=== PATIENT | male | born 1990 | race Caucasian/White ===

== ENCOUNTER 2018-10-11 19:33 | Emergency (ER) | payer BC ==
--- OUTSIDE RECORDS SUMMARY | 2018-10-11 19:37 | XMS REPORT | Continuity of Care Document ---
:1990 External Reference #:[id number] Author Name Buck Ivey M.D. Address [address] [place] [address] Care Team Providers Name Role Phone Javid Pillai M.D. 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 Family History Date Family Member(s) Observation Comments Father No Current Problems Mother No Current Problems Social History Type Date Description Comments Sex Unknown Marital Status Single Occupation It support and Manager Physical Work Status Full-Time Employment ETOH Use 3 drinks 3 times weekly Tobacco Use Start: Unknown Patient has never smoked Recreational Drug Use Denies Drug Use Smoking Status Reviewed: 09/24/18 Patient has never smoked Allergies, Adverse Reactions, Alerts Description No Known Drug Allergies Medications Active Medications SIG Qnty Indications Ordering Provider Date Humira Unknown 20mg/0.2ML PSKT History Medications No Active Medications Unknown 09/24/2018 - 09/24/2018 Prednisolone Acetate 1 drops right 5ml H20.011 Buck 02/22/2016 - 1% eye Six times a Lisa Ivey 09/24/2018 Suspension day. taper as directed Prednisolone Use 1 Drop Right H20.011 Joce Delgado 11/02/2015 - 15mg/5ML Eye Lisa Hicks 11/05/2015 Syrup Prednisone 1 tab by mouth 3 45tabs H20.011 Buck 10/30/2015 - 20mg Tablets times daily Lisa Ivey 12/19/2015 Prednisolone Acetate 1 drop right eye 15ml H20.011 Buck 10/27/2015 - 1% - every hour Lisa Ivey 09/24/2018 Suspension while awake Prednisone Take four 30tabs Joce Delgado 10/24/2015 - 10mg Tablets tablets by mouth Lisa Hicks 11/05/2015 for 3 days, then two tablets by mouth for 3 days, then one tablet by mouth for 3 days, then d/c. Atropine Sulfate 1 drop right eye 5ml Maria Ramírez, 10/23/2015 - 1% every day O.D. 11/05/2015 Solution Durezol 1 drop 6 times a 5ml H20.011 Maria Ramírez, 10/23/2015 - 0.05% Emulsion day in the right O.D. 10/26/2015 eye No Active Medications Unknown 10/19/2015 - 10/19/2015 Prednisolone Acetate 1 drop right eye 1units H20.011 Maria Nevarezy, 10/18 - 1% every 2 hours O.D. 10/26/2015 Suspension Procedures Date Code Description Status 11/21/2015 76077 Est Patient Intermediate Exam Completed 10/30/2015 91867 Est Patient Intermediate Exam Completed 10/19/2015 87597 Est Patient Intermediate Exam Completed 03/25/2011 04887 New Patient Comprehensive Exam Completed Encounters Type Date Location Provider Dx Diagnosis Office Visit 02/22/2016 Buck Javed H20.011 Primary 8:00a janet JUNG M.D. iridocyclitis, right eye Office Visit 01/17/2016 Buck Javed H20.011 Primary 8:00a janet JUNG M.D. iridocyclitis, right eye Office Visit 12/19/2015 Buck Javed H20.011 Primary 3:45p janet JUNG M.D. iridocyclitis, right eye Office Visit 11/06/2015 Buck Javed H20.011 Primary 9:45a MD, pc Zablocki, M.D. iridocyclitis, right eye Office Visit 11/02/2015 Joce Javed, H20.011 Primary 11:30a janet JUNG M.D. iridocyclitis, right eye Office Visit 10/27/2015 Maria Javed, H20.011 Primary 3:30p janet JUNG O.D. iridocyclitis, right eye Office Visit 10/23/2015 Maria Javed, H20.011 Primary 8:45a janet JUNG O.D. iridocyclitis, right eye Office Visit 05/27/2013 Aristeo Javed, 364.01 Iridocyclitis 3:30p janet JUNG M.D. Primary Office Visit 05/20/2013 Aristeo Javed, 364.01 Iridocyclitis 2:30p janet JUNG M.D. Primary Office Visit 04/06/2012 Amanda Javed, 364.01 Iridocyclitis 4:15p janet JUNG O.D. Primary Office Visit 04/03/2012 Amanda Javed, 364.01 Iridocyclitis 3:45p janet JUNG O.D. Primary Office Visit 05/02/2011 Amanda Javed, 364.01 Iridocyclitis 4:00p janet JUNG O.D. Primary Office Visit 04/18/2011 Amanda Javed, 364.01 Iridocyclitis 4:00p janet JUNG O.D. Primary Office Visit 04/02/2011 Aristeo Javed, 364.01 Iridocyclitis 1:45p janet JUNG M.D. Primary Office Visit 03/28/2011 Amanda Javed, 364.01 Iridocyclitis 10:30a janet JUNG O.D. Primary Plan of Treatment 09/24/2018 - Buck Ivey M.D.H20.011 Primary iridocyclitis, right eyeComments:Smoking can increase the risk of developing or worsening any eye related disease, as well as affect your overall health. If you are a smoker, we strongly recommend that you quit.If you are not a smoker, we strongly recommend that you do not start. IF YOUR SYMPTOMS RETURN CALL THE CLINIC TO SCHEDULE AN APPOINTMENT.Follow up:6 Month Follow Up DFE You can expect to have your eyes dilated at your next visit. If Dr. Ivey orders any additional testing, it may require extra time. We recommend that you bring sunglasses, as dilation drops often make you light sensitive until they wear off. We always recommend you bring someone to drive you home if you are uncomfortable driving with your eyes dilated. If you have any questions before your next visit, feel free to call our office at .
--- NOTE | 2018-10-11 19:57 | UC ---
Lower Extremity/Ankle HPI - HPI Summary HPI Summary: Patient presents to urgent care for evaluation of an ankle injury that occurred yesterday. Patient states around 7:30 PM he was walking when he inverted his ankle. Patient did not fall. No other injuries. Patient states he had pain and lateral malleolus. Patient was at a festival sought care at their medical tent. Patient states he put an Evert wrap on it. Patient continue to walk. Overnight wound became more swollen more black and blue. Patient states he has not been able elevated. Patient took Motrin yesterday but nothing today. No knee or hip pain. No back pain. No other complaints. Patient's medications reviewed this visit. - History of Current Complaint Chief Complaint: UCLowerExtremity Stated Complaint: L ANKLE INJURY Time Seen by Provider: 10/11/18 19:35 Hx Obtained From: Patient, Family/Commutator Operator Onset/Duration: Gradual Onset Severity Currently: Mild Pain Intensity: 3 Pain Scale Used: 0-10 Numeric - Allergies/Home Medications Allergies/Adverse Reactions: Allergies Allergy/AdvReac Type Severity Reaction Status Date / Time No Known Allergies Allergy Verified 10/11/18 19:40 Home Medications: Home Medications Ibuprofen 600 mg PO 10/11/18 [History] Multivitamin [Multivitamins] 1 cap PO 10/11/18 [History] PMH/Surg Hx/FS Hx/Imm Hx Previously Healthy: Yes - Surgical History Surgical History: Yes Surgery Procedure, Year, and Place: wisdom teeth - Family History Known Family History: Positive: Non-Contributory - Social History Occupation: Employed Full-time Lives: With Family Alcohol Use: Weekly Substance Use Type: None Smoking Status (MU): Former Smoker Type: eCigarettes - Immunization History Most Recent Influenza Vaccination: never Most Recent Tetanus Shot: unknown Most Recent Pneumonia Vaccination: never Review of Systems All Other Systems Reviewed And Are Negative: Yes Skin: Positive: Bruising Musculoskeletal: Positive: Other: - left ankle Physical Exam - Summary Physical Exam Summary: Vital Signs Reviewed: Yes A+Ox3, no distress Eyes: Conjunctiva Clear ENT: Hearing grossly normal neck: supple Respiratory: Positive: No respiratory distress, No accessory muscle use Cardiovascular: skin color reflect adequate perfusion 2+ DP, PT CBT < 2 sec Musculoskeletal Exam: favoring left LE. + SLE + flex/ext knee, + TTP lateral ankle with flex/ext + TTP anterior, inferior margin of ankle. + TTP dorsum midfoot 4/5 MT no crepitus Neurological: Positive: Alert, ambulatory without difficulty Psychological: Positive: Normal Response To proivder Skin: Positive: no rash, extensive ecchymosis and edema lateral malleolus and dorsum foot with extension to dorsum foot and toes no crepitus Triage Information Reviewed: Yes Vital Signs: Initial Vital Signs Temp 99.0 F 10/11/18 19:37 Pulse 92 10/11/18 19:37 Resp 18 10/11/18 19:37 BP 140/116 10/11/18 19:37 Pulse Ox 99 10/11/18 19:37 Diagnostics - Radiology No standard instances Radiology Interpretation Completed By: Radiologist - Patient Name: KELLY STARK Medical Record#: [id number] Ordering Physician: Cathleen Cisneros MD Acct.#: [id number] : 1990 Age: 28 Sex: M Location: [facility] Exam Date: 10/11/181949 ADM Status: REG ER Order Information: ANKLE LEFT 3+ VWS Accession Number: [id number] CPT: 80781 EXAM: XR Left Ankle EXAM DATE/TIME: 10/11/2018 8 :04 PM CLINICAL HISTORY: 28 years old, male; Injury or trauma; Fall; Late effect from previous injury; Sprain or strain and swelling (edema); Ankle; Left ; Additional info: Inverted pain lat mall and mid foot TECHNIQUE: Imaging protocol: XR Left ankle. Views: 3 or more views. COMPARISON: No relevant prior studies available. FINDINGS: Bones/joints: No acute fracture. No dislocation. Soft tissues: Lateral soft tissue swelling. IMPRESSION: No acute fracture. To contact [facility] with a general question: Operations Center - [phone] For direct physician to physician contact: Physician Hotline - [phone] [facility] ([facility] Facility ID #[id number]) <Electronically signed by Alvaro Hurt MD in OV> 10/11/182100 Dictated By: Alvaro Hurt MD Dictated Date/Time: 10/11/182100 Transcribed Date/Time: Copy to: CC:Javid Pillai MD; Cathleen Cisneros MD Imaging - [facility] [address] This report is only to be considered final once signed by the Provider(s ) as displayed in the "<Electronically Signed by >" field (s). Absence of a signature indicates the report is in a draft status and still needs to be finalized. In the event this document was created by someone other than the signing Provider, the individual initiating the document will be listed in the "Entered by:" or "Dictated by:" darby. 1 of 2 Patient Name: KELLY STARK Medical Record#: [id number] Ordering Physician: Cathleen Cisneros MD Acct.#: [id number] : 1990 Age: 28 Sex: M Location: [facility] Exam Date: 10/11/181950 ADM Status: REG ER Order Information: FOOT LEFT 3+ VWS Accession Number: [id number] CPT: 98244 EXAM: XR Left Foot Complete EXAM DATE/TIME: 10/11/2018 8:04 PM CLINICAL HISTORY: 28 years old, male; Injury or trauma; Fall; Late effect from previous injury; Sprain or strain and swelling (edema); Left; Ankle and foot; Additional info: Inverted pain lat mall and mid foot TECHNIQUE: Imaging protocol: XR Left foot. Views: 3 or more views. COMPARISON: No relevant prior studies available. FINDINGS: Bones/joints: No acute fracture. No dislocation. Soft tissues: Unremarkable. IMPRESSION: No acute fracture. To contact [facility] with a general question: Operations Center - [phone] For direct physician to physician contact: Physician Hotline - [phone] [facility] ([facility] Facility ID #[id number]) <Electronically signed by Alvaro Hurt MD in OV> 10/11/182101 Dictated By: Alvaro Hurt MD Dictated Date/Time: 2101 Transcribed Date/Time: Copy to: CC:Javid Pillai MD; Cathleen Cisneros MD Imaging - [facility] Imaging - [facility] Imaging - [facility] [address] [facility] [address] [place] [address] This report is only to be considered final once signed by the Provider(s) as displayed in the "< Electronically Signed by >" field (s). Absence of a signature indicates the report is in a draft status and still needs to be finalized. In the event this document was created by someone other than the signing Provider, the individual initiating the document will be listed in the "Entered by:" or "Dictated by:" darby. 1 of 2 Lower Extremity Course/Dx - Course Course Of Treatment: Patient presents for evaluation of his left ankle following an inversion injury yesterday. Patient states he wrapped up a continue to walk on it. Patient with progressive edema and ecchymosis on the left lateral malleolus extending to the dorsum of the left foot. Patient is walking limp. No knee or hip pain. No other injuries. Patient has not taken anything for analgesia today. Patient states his foot was down as he was driving with progressive the last evening today. O Patient does have profound ecchymosis from the left malleolus extending to the toes. Patient also edema in the same area. Patient with tenderness along the lateral malleolus as well as the dorsum of the foot. We'll check imaging. Patient aware will be a preliminary Curtis tonight. We'll place in splint with Evert wrap or air splint pending was a fracture. Crutches. Ice and elevate and follow. Patient comfortable in agreement with plan. pt's BP markedly elevated - improved on recheck but high pt states gets like this in MD office recommend cjhec at home/drug store must f/u with pcp - Differential Dx/Diagnosis Provider Diagnosis: Left ankle sprain Discharge - Sign-Out/Discharge Documenting (check all that apply): Patient Departure All imaging exams completed and their final reports reviewed: Yes - Discharge Plan Condition: Stable Disposition: HOME Patient Education Materials: Ankle Sprain (ED), Crutch Instructions (ED) Referrals: Javid Pillai MD [Primary Care Provider] - Antonieta Post MD [Medical Doctor] - Additional Instructions: -wear evert wrap and splint for comfort and support -apply ice (20 min at a time) every 2-3 hours for the next 2 days -use crutches until you can walk normally without a limp -Elevate your leg - this will help with swelling and pain - Alternate ibuprofen (advil, Motrin) 600mg and tylenol every 3 hours for pain. Take with food. Do NOT take for more than 4-5 days -Contact the orthopedic provider tomorrow to schedule a follow-up appointment this week. Contact your doctor or the offender employment specialist with questions or concerns - Billing Disposition and Condition Condition: STABLE Disposition: Home
[2018-10-11 20:17] VITALS: BP 172/96
== END 2018-10-11 21:29 | disposition home or self-care (01) ==
LOC: UCEAST 19:33
DX: S93.402A Sprain of unspecified ligament of left ankle, initial encounter (principal); X50.0XXA Overexertion from strenuous movement or load, initial encounter; Y93.01 Activity, walking, marching and hiking; Y92.89 Other specified places as the place of occurrence of the external cause; Z87.891 Personal history of nicotine dependence
CPT/HCPCS: 99212; G0463

== ENCOUNTER 2019-05-25 17:10 | Emergency (ER) | payer BC ==
--- OUTSIDE RECORDS SUMMARY | 2019-05-25 17:15 | XMS REPORT | Continuity of Care Document ---
:1990 External Reference #:[id number] Author Name Joce Forte M.D. (transmitted by agent of provider Joanne Little) Address [address] [place] [address] Care Team Providers Name Role Phone Javid Pillai MD - Family Medicine Care Team Information Wharf Tender Problems Description No Information Available Social History Type Date Description Comments Sex Unknown ETOH Use Occasionally consumes alcohol Tobacco Use Start: Unknown End: Patient is a former Unknown smoker Tobacco Use Start: Unknown End: Patient is a former Pt. smoked for three Unknown smoker years. quit 3 years ago. 03/20 ppd Tobacco Use Start: Unknown End: currently smokes E-Pen Unknown Smoking Status Reviewed: 03/30/19 Patient is a former smoker Exercise Exercises regularly Type/Frequency Allergies, Adverse Reactions, Alerts Description No Known Drug Allergies Medications Active Medications SIG Qnty Indications Ordering Provider Date Lotrimin AF apply twice daily 12gm B35.4 Joce Forte, 08/30/2016 1% Cream to affected area M.D. as needed Humira Pen inject 40 mg 6units H20.9 Joce Forte, 07/12/2016 40mg/0.8ML under the skin M.D. PNKT every other week, citrate free M24.60 Medications Administered in Office Medication SIG Qnty Indications Ordering Provider Date PPD Joce Forte M.D. 06/25/2016 Injection Immunizations CPT Code Status Date Vaccine Reaction Lot # 54531 Given 04/29/2017 Pneumonia Vaccine no immediate reaction [id number] 25276 Given 02/27/2017 Influenza Virus Vaccine, no immediate reaction [id number] Quadrivalent, Split, noted Preservative Free 87670 Given 02/27/2017 Pneumococcal Conjugate no immediate reaction [id number] Vaccine 13 Valent For noted Intramuscular Use Vital Signs Date Vital Result Comment 03/30/2019 10:18am Height 69 inches 5'9" Weight 203.00 lb Heart Rate 91 /min BP Systolic Sitting 132 mmHg BP Diastolic Sitting 80 mmHg Body Temperature 96.8 F Pain Level 1 O2 % BldC Oximetry 97 % BMI (Body Mass Index) 30.0 kg/m2 10/27/2018 8:57am Height 69 inches 5'9" Weight 185.00 lb Heart Rate 76 /min BP Systolic 114 mmHg BP Diastolic 88 mmHg Respiratory Rate 16 /min Body Temperature 97.1 F Pain Level 0 BMI (Body Mass Index) 27.3 kg/m2 Results Description No Information Available Procedures Date Code Description Status 10/30/2016 670615419 Diabetic Retinal Eye Exam Completed Medical Devices Description No Information Available Encounters Type Date Location Provider Dx Diagnosis Office Visit 10/27/2018 [facility] Bernardo Lopez, S93.432D Sprain of 8:45a at [facility].D. tibiofibular ligament of left ankle, subs encntr Office Visit 10/13/[address] [facility] Bernardo Lopez, S93.432A Sprain of 8:15a at 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 unspecified 03/30/2019 Z79.899 Other snf (current) drug therapy Joce Forte M.D. 10/27/2018 S93.432D Sprain of tibiofibular ligament of left Bernardo Lopez M.D. ankle, subsequent encounter 10/13/2018 S93.432A Sprain of tibiofibular ligament of left Bernardo Lopez M.D. ankle, initial encounter Plan of Treatment Future Appointment(s):12/29/2019 11:00 am - Joce Forte M.D. 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
--- OUTSIDE RECORDS SUMMARY | 2019-05-25 17:15 | XMS REPORT | Continuity of Care Document ---
:1990 External Reference #:[id number] Author Name Buck Ivey M.D. Address [address] [place] [address] Care Team Providers Name Role Phone Javid Pillai M.D. 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 Social History Type Date Description Comments Sex Unknown ETOH Use 3 drinks 3 times weekly Tobacco Use Start: Unknown Patient has never smoked Recreational Drug Use Denies Drug Use Smoking Status Reviewed: 03/30/19 Patient has never smoked Allergies, Adverse Reactions, Alerts Description No Known Drug Allergies Medications Active Medications SIG Qnty Indications Ordering Provider Date Humira Unknown 20mg/0.2ML PSKT Immunizations Description No Information Available Vital Signs Description No Information Available Results Description No Information Available Procedures Description No Information Available Medical Devices Description No Information Available Encounters Description No Information Available Assessments Date Code Description Provider 03/30/2019 H20.011 Primary iridocyclitis, right eye Buck Ivey M.D. Plan of Treatment 03/30/2019 - Buck Ivey M.D.H20.011 Primary iridocyclitis, right eyeComments:Smoking can increase the risk of developing or worsening any eye related disease, as well as affect your overall health. If you are a smoker, we strongly recommend that you quit.If you are not a smoker, we strongly recommend that you do not start. THERE IS NO SIGN OF UVEITIS IN THE EYES. THE HUMIRA APPEARS TO BE WORKING WELL FOR YOU.IF YOU HAVE A RETURN OF SYMPTOMS THEN CALL THE OFFICEFollow up:6 Month Follow Up DFE You can [...] free to call our office at . Functional Status Description No Information Available Mental Status Description No Information Available Referrals Description No Information Available
--- OUTSIDE RECORDS SUMMARY | 2019-05-25 17:15 | XMS REPORT | Continuity of Care Document ---
:1990 External Reference #:[id number] Author Name Buck Ivey M.D. Address [address] [place] [address] Care Team Providers Name Role Phone Javid Pillai M.D. - Family Medicine Care Team Information Regulatory Affairs Director [phone] Joce Forte MD - Rheumatology Care Team Information Regulatory Affairs Director Problems Active Problems Provider Date Primary iridocyclitis [...]
[2019-05-25 17:20] VITALS: BP 133/88
--- NOTE | 2019-05-25 19:10 | UC ---
Complaint Male HPI - HPI Summary HPI Summary: 28-year-old male comes in with a chief complaint of intermittent blood in his stools. He's had several episodes after a large hard stool or has bloody there on the stool or in the water on the toilet fever. 2 weeks ago patient had a large stool and had pain with it and had blood at that time. Symptoms resolved after about 2 days. This morning when he had a bowel movement the stool was normal didn't see any blood in the toilet but did have blood on the toilet paper. He also has been having intermittent abdominal discomfort and bloating. Patient is on Humira for possible ankylosing spondylitis. - History of Current Complaint Chief Complaint: UCGI Stated Complaint: BLOOD IN STOOL Time Seen by Provider: 05/25/19 18:40 Pain Intensity: 0 - Allergies/Home Medications Allergies/Adverse Reactions: Allergies Allergy/AdvReac Type Severity Reaction Status Date / Time No Known Allergies Allergy Verified 05/25/19 17:20 Home Medications: Home Medications Ibuprofen 600 mg PO Q6HR 10/11/18 [History] Multivitamin [Multivitamins] 1 cap PO DAILY 10/11/18 [History Confirmed 05/25/19 ] Adalimumab [Humira] 10 mg SUBCUT DAILY 05/25/19 [History Confirmed 05/25/19] PMH/Surg Hx/FS Hx/Imm Hx Previously Healthy: Yes - Surgical History Surgical History: Yes Surgery Procedure, Year, and Place: wisdom teeth - Family History Known Family History: Positive: Non-Contributory - Social History Alcohol Use: Daily Alcohol Amount: 1 to 3 drinks Substance Use Type: None Smoking Status (MU): Former Smoker Type: eCigarettes - Immunization History Most Recent Influenza Vaccination: never Most Recent Tetanus Shot: unknown Most Recent Pneumonia Vaccination: never Review of Systems All Other Systems Reviewed And Are Negative: Yes Constitutional: Positive: Negative Skin: Positive: Negative Eyes: Positive: Negative ENT: Positive: Negative Respiratory: Positive: Negative Cardiovascular: Positive: Negative Gastrointestinal: Positive: Other - SEE HPI Motor: Positive: Negative Neurovascular: Positive: Negative Musculoskeletal: Positive: Negative Neurological/Mental Status: Positive: Negative Psychological: Positive: Negative Is Patient Immunocompromised?: No Physical Exam Triage Information Reviewed: Yes Appearance: Well-Appearing, No Pain Distress, Well-Nourished Vital Signs: Initial Vital Signs Temp 97.4 F 05/25/19 17:13 Pulse 106 05/25/19 17:13 Resp 16 05/25/19 17:13 BP 133/88 05/25/19 17:13 Pulse Ox 98 05/25/19 17:13 Vital Signs Reviewed: Yes Eye Exam: Normal Eyes: Positive: Conjunctiva Clear Neck: Positive: Supple Respiratory: Positive: No respiratory distress Abdomen Description: Positive: Nontender, Other: - External visualization of the anus does show some swelling anteriorly and skin breakdown anteriorly. Swelling appears to be a small hemorrhoid. Skin breakdown appears to be a fissure. No erythema no drainage. The hemorrhoid does not appear to be thrombosed. Musculoskeletal: Positive: Strength Intact, ROM Intact Neurological: Positive: Alert, Muscle Tone Normal Psychological: Positive: Age Appropriate Behavior Skin Exam: Normal Complaint Male Course/Dx - Course Course Of Treatment: We discussed treatment of hemorrhoids and fissures. Because of the recurrent bleeding and also the bloating and regular stools the plan is to follow-up with gastroenterology. - Differential Dx/Diagnosis Provider Diagnosis: Bleeding hemorrhoids, Anal fissure Discharge ED - Sign-Out/Discharge Documenting (check all that apply): Patient Departure All imaging exams completed and their final reports reviewed: No Studies - Discharge Plan Condition: Stable Disposition: HOME Patient Education Materials: Hemorrhoids (ED), Rectal Bleeding (ED), Anal Fissure (ED) Referrals: Javid Pillai MD [Primary Care Provider] - Parish Brice DO [Doctor of Osteopathy] - Additional Instructions: FOLLOW UP WITH GASTROENTEROLOGY. GET REEVALUATED SOONER IF NOT IMPROVED OR WORSE OR ANY QUESTIONS OR CONCERNS. - Billing Disposition and Condition Condition: STABLE Disposition: Home
== END 2019-05-25 19:29 | disposition home or self-care (01) ==
LOC: UCEAST 17:10
DX: K64.9 Unspecified hemorrhoids (principal); K60.2 Anal fissure, unspecified; Z87.891 Personal history of nicotine dependence
CPT/HCPCS: 99212; G0463